=== PATIENT | male | born 1995 | race African-American/Black ===

== ENCOUNTER 2023-08-15 11:29 | Emergency (ER) | payer MEDICAID, OTHER ==
[~2023-08-15] VITALS: Ht 177.8 cm; Wt 95.3 kg
[2023-08-15 11:41] VITALS: O2SAT 100
[2023-08-15] MEDS ORDERED: CLOT12CR TP (11:53)
== END 2023-08-15 11:59 | disposition home or self-care (01) ==
LOC: ER 11:29
DX: B35.3 Tinea pedis (principal); Z79.899 Other long term (current) drug therapy
CPT/HCPCS: A4606; A4663